=== PATIENT | male | born 2000 | race Two or more races ===

== ENCOUNTER 2025-03-27 15:31 | Emergency (ER) | payer MEDICAID ==
[2025-03-27] MEDS: Ondansetron 4 MG/2 ML SDV IVPUSH ONE (16:15)
[2025-03-27] MEDS: Labetalol 100 MG/20 ML MDV IVPUSH ONE ×2 (16:21→18:02)
[2025-03-27] MEDS: Metoclopramide 10 MG/2 ML SDV IVPUSH ONE (17:08)
[2025-03-27] MEDS: Famotidine 20 MG/2 ML SDV IVPUSH ONE (17:09)
[2025-03-27 17:10] LABS: BASOPHILS ABSOLUTE AUTO 0.1 K/mm3 (0.0-0.2); BASOPHILS PERCENT AUTO 0.7 % (0.0-1.0); EOSINOPHILS ABSOLUTE AUTO 0.1 K/mm3 (0.0-0.4); EOSINOPHILS PERCENT AUTO 1.7 % (0.0-6.0); HEMATOCRIT 38.9 % (42.0-52.0); HEMOGLOBIN 12.5 gm/dl (14.0-18.0); IMMATURE GRAN ABSOLUTE AUTO 0.03 K/mm3 (0.00-0.05); IMMATURE GRAN PERCENT AUTO 0.4 % (0.0-0.4); LYMPHOCYTES PERCENT AUTO 15.1 % (24.0-44.0); MEAN CORPUSCULAR HEMOGLOBIN 26.8 pg (28.0-32.0); MEAN CORPUSCULAR HGB CONC 32.1 g/dl (32.0-36.0); MEAN CORPUSCULAR VOLUME 83.5 fl (83.0-99.0); MEAN PLATELET VOLUME 8.3 fl (9.4-12.4); MONOCYTES ABSOLUTE AUTO 0.1 K/mm3 (0.0-0.8); MONOCYTES PERCENT AUTO 1.6 % (0.0-8.0); NEUTROPHILS ABSOLUTE AUTO 5.5 K/mm3 (1.8-7.7); NEUTROPHILS PERCENT AUTO 80.5 % (41.0-71.0); PLATELET COUNT,PLT 127 K/mm3 (150-400); RED BLOOD CELL COUNT 4.66 M/mm3 (4.52-5.90); WHITE BLOOD CELL COUNT,WBC 6.87 K/mm3 (3.9-11.3)
[2025-03-27] MEDS ORDERED: Naloxone 0.4 MG/ML SDV IVPUSH PRN (17:30)
[2025-03-27] MEDS: HYDROmorphone 0.5 MG/0.5 ML Syringe IVPUSH ONE (17:36)
[2025-03-27] MEDS: droPERidol 2.5 MG/ML SDV IV ONE (17:36)
[2025-03-27 17:38] LABS: A/G RATIO 0.4 (1-2); ALBUMIN 1.4 g/dl (3.4-5.0); ANION GAP 10.7 (5-15); BILIRUBIN TOTAL 0.4 mg/dL (0.2-1.0); BUN/CREATININE RATIO 3.8 (14-18); C-REACTIVE PROTEIN 0.77 mg/dL (<0.30); CALCIUM 7.9 mg/dL (8.5-10.1); CREATININE 2.9 mg/dL (0.7-1.3); EST CRCL DRUG DOSING (CG) 34.67 mL/min; MAGNESIUM 1.9 mg/dL (1.8-2.4); POTASSIUM,K 3.7 mEq/L (3.5-5.1); PROTEIN TOTAL,TP 5.2 g/dl (6.4-8.2)
[2025-03-27] MEDS: diphenhydrAMINE 50 MG/ML SDV IVPUSH ONE (17:41)
[2025-03-27] MEDS: Loratadine 10 MG Tab PO ONE (17:48)
[2025-03-27 19:19] LABS: APPEARANCE,URINE CLEAR (Clear); BILIRUBIN,URINE NEGATIVE (Negative); COLOR,URINE YELLOW (Yellow); GLUCOSE,URINE 2+ (Negative); KETONES,URINE 1+ (Negative); LEUKOCYTE ESTERASE,URINE NEGATIVE (Negative); NITRITE,URINE NEGATIVE (Negative); OCCULT BLOOD,URINE TRACE-INTACT (Negative); PH,URINE 8.5 (5.0-8.0); PROTEIN,URINE 3+ (Negative); UROBILINOGEN,URINE 0.2 (0.2-1.0)
[2025-03-27 19:20] LABS: BACTERIA,URINE FEW /hpf (FEW); MUCUS,URINE FEW /hpf (FEW); RBC,URINE 0-5 /hpf (0-5); SQUAMOUS EPITHELIAL CELLS,UR 0-5 /hpf (0-5); WBC,URINE 0-5 /hpf (0-5)
[2025-03-27 20:45] VITALS: BP 183/102; PULSE 95
== END 2025-03-27 20:40 | disposition home or self-care (01) ==
LOC: JD.ED 15:31
DX: K59.01 Slow transit constipation (principal); I10 Essential (primary) hypertension; E10.9 Type 1 diabetes mellitus without complications; Z79.4 Long term (current) use of insulin; Z79.899 Other long term (current) drug therapy; Z88.0 Allergy status to penicillin; Z88.5 Allergy status to narcotic agent; Z91.013 Allergy to seafood; Z99.2 Dependence on renal dialysis
CPT/HCPCS: 36415; 51701; 71045; 74176; 76705; 80053; 81001; 83735; 84484; 85025; 86140; 93005; 96374; 96375; 96376; 99284; J1200; J1790; J1920; J2405; J2765; 93010